=== PATIENT | male | born 1995 | race African-American/Black ===

== ENCOUNTER 2018-11-20 08:17 | Emergency (ER) | payer MEDICAID ==
[~2018-11-20] VITALS: Ht 175.3 cm; Wt 75.0 kg
--- NOTE | 2018-11-20 09:15 | NUR ---
pt is sitting in bed, awake, calm, no s/s of distress
--- NOTE | 2018-11-20 10:15 | NUR ---
pt is cooperative with med hx, no s/s of distress
--- NOTE | 2018-11-20 10:55 | NUR ---
called telephsych, spoke to CJ, camera in place.
[2018-11-20 11:03] LABS: BASOPHILS # (AUTO) 0.1 X10'3 (0-0.2); BASOPHILS % (AUTO) 0.7 % (0-1); EOSINOPHILS # (AUTO) 0.1 X10'3 (0-0.9); EOSINOPHILS % (AUTO) 0.7 % (0-6); LYMPHOCYTES # (AUTO) 1.8 X10'3 (1.1-4.8); MEAN CORPUSCULAR HEMOGLOBIN 30.5 PG (27.0-31.0); MEAN CORPUSCULAR HGB CONC 33.3 % (33.0-36.5); MEAN CORPUSCULAR VOLUME 91.8 FL (78-98); MEAN PLATELET VOLUME 8.4 FL (7.4-10.4); MONOCYTES # (AUTO) 0.8 X10'3 (0-0.9); NEUTROPHILS # (AUTO) 9.8 X10'3 (1.8-7.7); NEUTROPHILS % (AUTO) 78.6 % (42-75); PLATELET COUNT 266 X10'3 (140-440); RED CELL DISTRIBUTION WIDTH 12.4 % (11.5-14.5); WHITE BLOOD COUNT 12.6 X10'3 (4.5-11.0)
--- NOTE | 2018-11-20 11:16 | NUR ---
spoke to Dr Ponce from telepsych, he will speak with Patient and call back
[2018-11-20 11:18] LABS: ALANINE AMINOTRANSFERASE 26 U/L (12-78); ALBUMIN 4.5 G/DL (3.4-5.0); ALBUMIN/GLOBULIN RATIO 1.3 (1.1-1.5); ALKALINE PHOSPHATASE 63 IU/L (46-116); ANION GAP 14 (8-16); ASPARTATE AMINO TRANSFERASE 14 U/L (10-37); BILIRUBIN,TOTAL 0.7 MG/DL (0.1-1.0); BLOOD UREA NITROGEN 13 MG/DL (7-18); BUN/CREATININE RATIO 12.1 (5.4-32.0); CALCIUM 9.3 MG/DL (8.5-10.1); CHLORIDE 100 MMOL/L (99-107); CREATININE 1.07 MG/DL (0.60-1.10); ETHANOL < 0.010 GM/DL (0.0-0.010); GLUCOSE 91 MG/DL (70-104); POTASSIUM 3.6 MMOL/L (3.5-5.1); SODIUM 138 MMOL/L (135-145); TOTAL CARBON DIOXIDE 24.1 MMOL/L (24-32); eGFR 86 ML/MIN
[2018-11-20] MEDS ORDERED: LITH300C PO (11:23)
[2018-11-20] MEDS ORDERED: AMPH10TA23 PO (11:25)
[2018-11-20] MEDS ORDERED: LURA20TA PO (11:25)
[2018-11-20 11:39] LABS: URINE AMPHETAMINE SCREEN POSITIVE (Neg); URINE BARBITUATE SCREEN NEGATIVE (Neg); URINE BENZODIAZEPINES SCREEN NEGATIVE (Neg); URINE CANNABINOID SCREEN POSITIVE (Neg); URINE COCAINE SCREEN NEGATIVE (Neg); URINE METHADONE SCREEN NEGATIVE (Neg); URINE OPIATE SCREEN NEGATIVE (Neg); URINE PHENCYCLIDINE SCREEN NEGATIVE (Neg)
--- NOTE | 2018-11-20 12:15 | NUR ---
new lab draw for lithium drawn, pt is calm and compliant with lab draw,
--- NOTE | 2018-11-20 13:12 | NUR ---
pt laying in bed, only ate a couple bites of food, says he is not hungry
--- NOTE | 2018-11-20 13:54 | NUR ---
pt is sitting in bed calm, looking around, no s/s of distress
--- NOTE | 2018-11-20 14:21 | NUR ---
spoke to pharmacy re: pts meds, [facility] [address] in [place] and Adderall was filled in [facility].
--- NOTE | 2018-11-20 14:35 | NUR ---
pt is standing at bedside, says he is starting to feel anxious, would like to talk with someone, does not want medication. He was offered, books, coloring books etc.
[2018-11-20] MEDS ORDERED: LORazepam 1 MG tablet PO PRN (15:30)
--- NOTE | 2018-11-20 15:30 | NUR ---
pt is talking to security, he is asking what happens if he leaves while on a 5150, I requeseted Trish for him
[2018-11-20] MEDS ORDERED: LORazepam 0.5 MG tablet PO PRN (15:33)
[2018-11-20] MEDS ORDERED: nicotine 21mg patch - 24 hr TD ONE (16:35)
--- NOTE | 2018-11-20 16:46 | NUR ---
pt is standing in fron of his bed, pacing, getting a little better on his anxiousness, he says
--- NOTE | 2018-11-20 17:49 | NUR ---
pt is still standing in front of bed, talking to staff
[2018-11-20 17:58] VITALS: BP 154/100
[2018-11-20] MEDS ORDERED: lurasidone 20mg tablet PO SCH (18:00)
--- NOTE | 2018-11-20 18:25 | NUR ---
[facility] and they will be coming to get him at around 2100
--- NOTE | 2018-11-20 19:25 | NUR ---
pt is in bed sleeping on his right side, no s/s of distress
[2018-11-20 20:17] LABS: CLARITY,URINE CLEAR (Clear); COLOR,URINE YELLOW (Yellow); GLUCOSE, URINE NEGATIVE (Neg); KETONES,URINE 40 mg/dl (Neg); LEUKOCYTE ESTERASE ,URINE NEGATIVE (Neg); NITRITES, URINE NEGATIVE (Neg); OCCULT BLOOD,URINE NEGATIVE (Neg); PROTEIN,URINE NEGATIVE (Neg)
--- NOTE | 2018-11-20 20:17 | NUR ---
pt left with security, no agitation noted, belongings carried out for him by securuity
[2018-11-20 20:18] LABS: UA COLLECTION TYPE CLN CATCH MIDSTREAM
[2018-11-21] MEDS ORDERED: AMPHET ASP PO SCH (08:00)
[2018-11-21] MEDS ORDERED: D AMPHET PO SCH (08:00)
[2018-11-21] MEDS ORDERED: AMPHET PO SCH (08:00)
== END 2018-11-20 20:22 ==
LOC: EEVIPCON 08:19 → ER 08:19
DX: F22 Delusional disorders (principal); F29 Unspecified psychosis not due to a substance or known physiological condition; R44.1 Visual hallucinations; R45.851 Suicidal ideations; F32.9 Major depressive disorder, single episode, unspecified; F12.90 Cannabis use, unspecified, uncomplicated; Z79.899 Other long term (current) drug therapy
CPT/HCPCS: 36415; 80053; 80178; 80305; 80320; 81003; 84443; 85025; 99285